=== PATIENT | female | born 1965 | race Two or more races ===

== ENCOUNTER 2024-11-03 07:03 | Day surgery (SDC) | payer OTHER ==
[2024-10-29 14:21] VITALS: BP 150/80
[~2024-11-03] VITALS: Ht 162.6 cm; Wt 62.1 kg
== END 2024-11-03 16:30 | disposition home or self-care (01) ==
LOC: CIR.AMB 07:03 → EDBD 12:45 → CIR.AMB 16:30
PROVIDERS: ATTEND Orthopaedic Surgery Hand Surgery
DX: G56.02 Carpal tunnel syndrome, left upper limb (principal)